=== PATIENT | female | born 1990 | race Caucasian/White ===

== ENCOUNTER 2020-04-05 19:40 | Emergency (ER) | payer SELFPAY ==
[~2020-04-05] VITALS: Ht 162.6 cm; Wt 95.7 kg
[~2020-04-05 19:40] MED LIST: IBUP-1902 PO
--- NOTE | 2020-04-05 20:10 | NUR ---
BRANDAN CHOI AT BEDSIDE.
[2020-04-05] MEDS ORDERED: KETOROLAC 30 MG/1 ML ONE (20:27)
[2020-04-05] MEDS ORDERED: KETOROLAC 30 MG/1 ML IM ONE (20:30)
--- NOTE | 2020-04-05 20:30 | NUR ---
THIS IS A 29 YO FEMALE WHO PRESENTS TO THE ER C/O MID TO UPPER BACK PAIN RADIATING ACROSS HER CHEST SINCE WEDNESDAY. PT REPORTS SHE HAD NAUSEA AND VOMITING ON WEDNESDAY THAT HAS SINCE RESOLVED. PAIN IS INTERMITTENT AND DESCRIBED SHARP/PRESSURE. PT AO X 4. SKIN PWD. RESP EVEN AND UNLABORED. PT CURRENTLY DENIES PAIN. PT ON CONT BP, CARDIAC AND O2 MONITORS. CALL LIGHT WITHIN REACH. WILL CONT TO MONITOR PT.
[2020-04-05 20:37] LABS: ALBUMIN 3.6 g/dL (3.4-5.0); ANION GAP 7 mmol/L (5-15); CALCIUM 8.8 mg/dL (8.5-10.1); CHLORIDE 109 mmol/L (98-107); CREATININE 0.91 mg/dL (0.55-1.02)
[2020-04-05 20:41] LABS: TROPONIN I < 0.015 ng/mL (0.000-0.045)
[2020-04-05 20:47] LABS: ALBUMIN 3.5 g/dL (3.4-5.0); BILIRUBIN, DIRECT 0.2 mg/dL (0.1-0.2)
[2020-04-05 20:49] LABS: BILIRUBIN,INDIRECT 0.3 mg/dL (0.0-2.0); BILIRUBIN,TOTAL 0.5 mg/dL (0.2-1.0); TOTAL PROTEIN 7.2 g/dL (6.4-8.2)
[2020-04-05 20:58] LABS: BASOPHILS % (AUTO) 0 % (0-1); EOSINOPHILS # (AUTO) 0.19 x10^3/uL (0-0.4); EOSINOPHILS % (AUTO) 2 % (1-7); LYMPHOCYTES # (AUTO) 1.54 x10^3/uL (1-3.4); LYMPHOCYTES % (AUTO) 16 % (22-44); MD NO; MEAN CORPUSCULAR HEMOGLOBIN 20.3 pg (27.0-34.8); MEAN CORPUSCULAR HGB CONC 30.9 g/dL (32.4-35.8); MEAN CORPUSCULAR VOLUME 65.6 fL (80-100); MEAN PLATELET VOLUME 9.1 fL (7.4-10.4); MONOCYTES # (AUTO) 0.57 x10^3/uL (0.2-0.8); MONOCYTES % (AUTO) 6 % (2-9); NEUTROPHILS # (AUTO) 7.35 x10^3/uL (1.8-6.8); NEUTROPHILS % (AUTO) 76 % (42-75); PLATELET COUNT 259 x10^3/uL (130-400); RED BLOOD COUNT 4.22 x10^6/uL (3.82-5.3); RED CELL DISTRIBUTION WIDTH 19.5 % (9.6-15.2)
--- NOTE | 2020-04-05 21:15 | NUR ---
Md at bedside, update on results provided.
[2020-04-05] MEDS ORDERED: MAALOX/HYOSCYAMINE/LIDOCAINE 45 ML BTL ONE (21:27)
[2020-04-05] MEDS ORDERED: MAALOX/HYOSCYAMINE/LIDOCAINE 45 ML BTL PO ONE (21:30)
--- NOTE | 2020-04-05 22:01 | NUR ---
Handoff report to JOVON Jimenez. All questions answered.
--- NOTE | 2020-04-05 22:05 | NUR ---
REPORT RECEIVED FROM JOVON MALDONADO. PT RESTING [place], UPDATED ON POC, MONITORING IN PLACE, CALL LIGHT WITHIN REACH. PT DENIES FURTHER NEEDS AT THIS TIME.
[2020-04-05 22:06] VITALS: BP 155/75
--- NOTE | 2020-04-05 22:32 | NUR ---
PT UP TO BATHROOM WITH STEADY GAIT.
== END 2020-04-05 22:51 | disposition home or self-care (01) ==
LOC: ED 21:07
DX: R07.89 Other chest pain (principal); R06.00 Dyspnea, unspecified; K80.20 Calculus of gallbladder without cholecystitis without obstruction; D50.9 Iron deficiency anemia, unspecified; R51 Headache; R11.2 Nausea with vomiting, unspecified; R94.31 Abnormal electrocardiogram [ECG] [EKG]
CPT/HCPCS: 36415; 71046; 76700; 80048; 80076; 82040; 83690; 84484; 85025; 93005; 96372; 99285; J1885